=== PATIENT | female | born 1985 | race Caucasian/White ===

== ENCOUNTER → 2020-06-03 09:31 | Outpatient (BNVA) | payer SELFPAY | PROVIDERS: Family Provider Nurse Practitioner; PCP Nurse Practitioner; Visit Provider Family Medicine | DX: F41.9 Anxiety disorder, unspecified (principal); F32.9 Major depressive disorder, single episode, unspecified | CPT/HCPCS: 82672; 84144; 84403; 84443 ==

== ENCOUNTER → 2021-06-09 09:55 | Outpatient (BNVA) | payer SELFPAY | PROVIDERS: Family Provider Nurse Practitioner; PCP Nurse Practitioner; Visit Provider Nurse Practitioner Family | DX: F32.9 Major depressive disorder, single episode, unspecified (principal) | CPT/HCPCS: 85025 ==